=== PATIENT | female | born 1955 | race Asian ===

== ENCOUNTER 2019-11-25 15:19 | Emergency (ER) | payer SELFPAY ==
[~2019-11-25] VITALS: Ht 157.5 cm; Wt 72.6 kg
[2019-11-25 17:14] VITALS: BP 146/81
== END 2019-11-25 17:30 | disposition home or self-care (01) ==
LOC: EDBD 15:19 → ER 15:19
DX: S09.8XXA Other specified injuries of head, initial encounter (principal); Z88.2 Allergy status to sulfonamides; W18.30XA Fall on same level, unspecified, initial encounter; Y93.89 Activity, other specified; Y92.89 Other specified places as the place of occurrence of the external cause; Y99.8 Other external cause status
CPT/HCPCS: 70450; 72192

== ENCOUNTER 2020-10-29 14:54 | Emergency (ER) | payer BC ==
[~2020-10-29] VITALS: Ht 157.5 cm; Wt 70.3 kg
[2020-10-29 14:55] VITALS: BP 131/80
== END 2020-10-29 16:54 | disposition home or self-care (01) ==
LOC: ER 14:54
DX: S39.012A Strain of muscle, fascia and tendon of lower back, initial encounter (principal); M51.36 Other intervertebral disc degeneration, lumbar region; R94.31 Abnormal electrocardiogram [ECG] [EKG]; Z88.2 Allergy status to sulfonamides; X58.XXXA Exposure to other specified factors, initial encounter; Y93.89 Activity, other specified; Y92.89 Other specified places as the place of occurrence of the external cause; Y99.8 Other external cause status
CPT/HCPCS: 72100; 93005

== ENCOUNTER 2021-03-21 17:17 | Emergency (ER) | payer BC ==
[~2021-03-21] VITALS: Ht 157.5 cm; Wt 68.0 kg
[2021-03-21 17:19] VITALS: BP 148/76
== END 2021-03-22 00:38 | disposition left against medical advice (07) ==
LOC: ER 17:17
DX: M25.511 Pain in right shoulder (principal); M54.5 Low back pain; Z53.21 Procedure and treatment not carried out due to patient leaving prior to being seen by health care provider; V89.2XXA Person injured in unspecified motor-vehicle accident, traffic, initial encounter; Y93.89 Activity, other specified; Y92.89 Other specified places as the place of occurrence of the external cause; Y99.8 Other external cause status

== ENCOUNTER 2021-04-16 06:49 | Emergency (ER) | payer BC ==
[~2021-04-16] VITALS: Ht 157.5 cm; Wt 68.9 kg
[2021-04-16 06:49] VITALS: BP 130/74
[2021-04-16] MEDS ORDERED: cefTRIAXone SOD 1,000 MG VL IM ONE (08:30)
== END 2021-04-16 08:56 | disposition home or self-care (01) ==
LOC: ER 06:49
DX: J03.90 Acute tonsillitis, unspecified (principal); J01.90 Acute sinusitis, unspecified; Z88.2 Allergy status to sulfonamides
CPT/HCPCS: 71046; 96372; 99283; J0696

== ENCOUNTER 2022-02-02 22:31 | Emergency (ER) | payer BC ==
[2022-02-02 22:37] VITALS: BP 140/76
[2022-02-03 00:50] LABS: Basophils # (auto) 0.1 10 ^3/uL (0-0.2); Basophils % (auto) 0.6 % (0.0-2.0); Eosinophils # (auto) 0.2 10 ^3/uL (0-0.8); Hematocrit 42.1 % (36.0-46.0); Hemoglobin 14.4 g/dL (12.2-16.2); Lymphocytes # (auto) 2.2 10 ^3/uL (0.4-5.4); Lymphocytes % (auto) 27.9 % (10.0-50.0); Mean Corpuscular Hemoglobin 30.4 pg (28.0-32.0); Mean Corpuscular Hgb Conc. 34.2 g/dL (32.0-36.0); Mean Corpuscular Volume 88.9 fL (80.0-100.0); Monocytes # (auto) 0.7 10 ^3/uL (0-1.3); Monocytes % (auto) 8.5 % (0.0-12.0); Neutrophils # (auto) 4.8 10 ^3/uL (1.6-8.6); Nucleated Red Blood Cells % 0.1 %; Red Blood Cells 4.73 10^6/uL (4.0-5.20); Red Cell Distribution Width 13.5 % (11.8-14.3); White Blood Cell 7.9 10^3/uL (4.4-10.8)
[2022-02-03 01:08] LABS: Albumin 3.5 g/dL (3.4-5.0); Calcium 8.9 mg/dL (8.5-10.1); Potassium 3.7 mmol/L (3.5-5.1)
[2022-02-03 01:18] LABS: BUN/Creatinine Ratio 13.5; Bilirubin, Total 0.4 mg/dL (0.2-1.0); Total Protein 7.5 g/dL (6.4-8.2)
[2022-02-03] MEDS ORDERED: CIPR-173 PO (04:12)
[2022-02-03] MEDS ORDERED: METR500T PO (04:12)
== END 2022-02-03 04:20 | disposition home or self-care (01) ==
LOC: ER 22:31
DX: K62.5 Hemorrhage of anus and rectum (principal); Z88.2 Allergy status to sulfonamides
CPT/HCPCS: 36415; 74176; 80053; 84484; 85025; 93005